=== PATIENT | female | born 1995 | race Caucasian/White ===

== ENCOUNTER 2019-02-18 13:33 | Outpatient (CLI) | payer OTHER ==
--- NOTE | 2019-02-18 14:25 | ULT ---
ULTRASOUND OB COMPLETE STANDARD: History: Anatomy scan. Supervision of high-risk in third trimester. Comparison: None. Findings: Real-time grayscale, color, and spectral analysis of the gravid uterus was performed. Single viable intrauterine with average ultrasound age 28 week 2 day with estimated date of delivery May 11, 2019. Estimated weight is 2 lbs. 9 oz., 2nd percentile. Biometry: Biparietal diameter: 7.09 cm, 28 week 4 day Head circumference: 25.73 cm, 28 week 0 day Abdominal circumference: 23.45 cm, 27 weeks 6 day Femur length: 5.31 cm, 28 week 2 day heart rate documented at 134 bpm. The placenta is posterior and the presentation is vertex. Amniotic fluid is adequate. Anatomy: The head, cerebellum, cisterna magna, 4-chamber heart, stomach, kidneys, cord insertion, polly dder, spine, lips/nose, upper extremities, lower extremities, and 3-vessel cord are all normal. Impression: 1. Single viable intrauterine with average ultrasound age 28 week 2 day with estimated date of delivery May 11, 2019. 2. Estimated weight based on last menstrual period is low at the 2nd percentile. Transcribed Date/Time: 02/18/2019 3:01 PM
== END 2019-02-18 13:34 | disposition home or self-care (01) ==
LOC: BICULT 13:33
PROVIDERS: ATTEND Family Medicine
DX: O09.93 Supervision of high risk pregnancy, unspecified, third trimester (principal); Z3A.28 28 weeks gestation of pregnancy
CPT/HCPCS: 76805

== ENCOUNTER 2019-04-08 18:57 | Day surgery (SDC) | payer OTHER ==
[2019-04-08] MEDS ORDERED: hydrALAZINE 20 MG/ML VIAL SLOW IVP PRN (19:21)
[2019-04-08 19:28] VITALS: BMI 24.3
--- NOTE | 2019-04-08 20:01 | PDOC.FPROB ---
FMR OB H&P: HPI - History of Present Illness Chief Complaint: Lower back/abdominal pain Indentification: 23 year old at 36 wks History of Present Illness: 23 year old at 36 wks presents with lower abdominal pain/back pain since this morning. Patient states the pain is constant but waxes and wanes in intensity every couple of minutes. Patient denies any changes in vaginal discharge, any vaginal bleeding, LoF. She endorses good movement. She had sono done yesterday which showed fetus to be cephalic. She has growth sono scheduled for Thursday. Patient previously seeing [facility] in [place] for poor maternal weight gain. She has gain nearly 30 pounds since that time. Patient states that she drank only two bottles of water today which is more than she drinks normally. 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: Denies history of STD's - Surgical History Sx History: LTCS x1 - Social History Social History: Denies alcohol, tobacco, or drug use FMR OB H&P: Medications - Current Home Medications: Medication Instructions Recorded Confirmed Type clonazePAM [Klonopin] 1 tab PO PRN PRN 04/08/19 04/08/19 History Allergies/Adverse Reactions: Allergies Allergy/AdvReac Type Severity Reaction Status Date / Time No Known Allergies Allergy Verified 04/08/19 19:21 FMR OB H&P: ROS - Review of Systems General: denies: fever/chills, fatigue Eyes: denies: double vision, scotomas ENT: denies: nasal congestion, rhinorrhea, sore throat Cardiovascular: denies: chest pain, palpitation, edema Respiratory: denies: cough, congestion, shortness of breath Gastrointestinal: reports: abdominal pain. denies: nausea, vomiting, diarrhea, constipation Genitourinary (Female): reports: contractions. denies: dysuria, vaginal discharge, vaginal bleeding Musculoskeletal: denies: pain, stiffness Neurologic: denies: numbness, syncope Integumentary: denies: itching, rash Hematologic/Lymphatic: denies: prolonged or excessive bleeding Psychological: reports: depression, anxiety FMR OB H&P: Vital Signs - Maternal Vital signs: BP 126/70 Pulse 105 Afebrile - Heart Tones Baseline: 125 Variability: moderate Acceleration: present Deceleration: absent [place] contractions every: Occasional, uterine irritability FMR OB H&P: Physical Exam - Physical Exam General: NAD, awake, alert and oriented HEENT: MMM, grossly normal vision, grossly normal hearing Heart: RRR, pulses present General: no respiratory distress, no wheezing Abdomen: soft, gravid, non-tender Musculoskeletal: pulses present, FROM in all four extremities Neurological: no tremor, no focal deficit Skin: no rash, capillary refill <2 seconds Lymphatic: no unusual bruising or bleeding, no purpura Psychiatric: intact recent and remote memory - Pelvic Exam SVE: 2, posterior, soft Presentation: Cephalic FMR OB H&P: A/P - Problem List (1) Current Visit: Yes Status: Acute Qualifiers: Weeks of gestation: 36 weeks Qualified Code(s): Z3A.36 - 36 weeks gestation of (2) Anxiety Current Visit: Yes Status: Acute Code(s): F41.9 - ANXIETY DISORDER, UNSPECIFIED Disposition: 23 year old at 36 wks sIUP, - Uterine irritability, improved with PO hydration - Reactive strip - SVE 2, posterior, soft - Does not appear to be in PTL - PO hydration, encouraged continued PO hydration Dispo: D/c home with return precautions. Discussion: Date/Time: 04/08/191955 This H&P was discussed with Dr. Echevarria who agrees with the above documentation and plan. Signature: Torri Lara, PGY-3 Addendum - Attending - Attending Attestation Date/Time: 04/08/192147 I personally evaluated the patient and discussed the management with Dr. Lara. I agree with the History, Examination, Assessment and Plan documented above.
== END 2019-04-08 20:48 | disposition home or self-care (01) ==
LOC: L&D/OP 18:57
PROVIDERS: ATTEND Family Medicine
DX: O99.89 Other specified diseases and conditions complicating pregnancy, childbirth and the puerperium (principal); R10.30 Lower abdominal pain, unspecified; M54.5 Low back pain; O99.343 Other mental disorders complicating pregnancy, third trimester; F41.9 Anxiety disorder, unspecified; O34.211 Maternal care for low transverse scar from previous cesarean delivery; Z3A.36 36 weeks gestation of pregnancy
CPT/HCPCS: 99282

== ENCOUNTER 2019-04-11 08:27 | Outpatient (CLI) | payer OTHER ==
--- NOTE | 2019-04-11 09:50 | ULT ---
EXAM: US OB Complete STANDARD PROVIDED CLINICAL HISTORY: Growth COMPARISON: 02/18/2019 FINDINGS: Single live intrauterine gestation is demonstrated in cephalic presentation with heart rate of 129 bp m. Placenta is fundally located without evidence for previa. Amniotic fluid index is 9.1. Estimated gestational age based on the current examination is 33 weeks 1 day, discrepant with the gestational a ge by dates and based on prior ultrasound. Cervical length appears adequate. Color Doppler and spectral analysis of the umbilical arterial waveform demonstrates a normal systolic to diastolic rati o varying between 2.3 and 3.0. BPD 7.62 cm 30 weeks 4 days Head circumference 30.38 cm 33 weeks 6 days Abdominal circumference 29.91 cm 34 weeks 0 days Femur length 6.54 cm 33 weeks 5 days Estimated weight 2209 +/- 323 g. IMPRESSION: Discrepancy between dates on the current exam as compared with dates calculated on prior exam and via LMP, suggesting growth restriction versus incorrect dates.
== END 2019-04-11 08:28 | disposition home or self-care (01) ==
LOC: BICULT 08:27
PROVIDERS: ATTEND Family Medicine
DX: O09.893 Supervision of other high risk pregnancies, third trimester (principal); Z3A.33 33 weeks gestation of pregnancy
CPT/HCPCS: 76805; 93975

== ENCOUNTER 2019-04-13 23:29 | Inpatient (IN) | payer OTHER ==
[2019-04-13] MEDS ORDERED: hydrALAZINE 20 MG/ML VIAL SLOW IVP PRN (23:54)
[2019-04-13] MEDS ORDERED: Promethazine HCl 25 MG/ML VIAL IM PRN (23:54)
[2019-04-13] MEDS ORDERED: Bicitra 30 ML UDCUP PO SCH (23:54)
[2019-04-13] MEDS ORDERED: Ondansetron PF 4 MG/2 ML Vial IVP PRN (23:54)
[2019-04-13] MEDS ORDERED: CEFAZOLIN 2 GM in Premix Bag 1 BAG IVPB SCH (23:54)
[2019-04-14 00:40] VITALS: BMI 24.7
[2019-04-14] MEDS: Lactated Ringer's 1,000 ML IV SCH ×2 (00:45→07:14)
[2019-04-14 00:58] LABS: Hemoglobin 12.2 g/dL (12.0-16.0); Mean Corpuscular HGB CONC 35.4 g/dL (32.0-36.0); Mean Corpuscular Hemoglobin 35.6 pg (27.0-31.0); Mean Platelet Volume 7.8 fL (7.4-10.4); Platelet Count 211 thou/uL (130-400); RBC Distribution Width 11.4 % (11.5-14.5); Red Blood Cell (RBC) Count 3.42 mill/uL (4.20-5.40); White Blood Cell (WBC) Count 15.7 thou/uL (4.8-10.8)
[2019-04-14 01:34] LABS: HBSAg Index 0.27 S/CO (0-0.99); Hep B Surf Ag Non-Reactive S/CO (NonReactive)
[2019-04-14 06:41] LABS: Syphilis Antibody Nonreactive (Nonreactive); Syphilis Antibody Index 0.03 S/CO (<1.00 Non-Reactive)
[2019-04-14] MEDS ORDERED: Fentanyl 100 MCG/2 ML VIAL ONE (06:49)
[2019-04-14] MEDS ORDERED: Ondansetron PF 4 MG/2 ML Vial ONE (06:50)
[2019-04-14] MEDS ORDERED: Oxytocin 10 UNITS/ML VIAL ONE (06:50)
[2019-04-14] MEDS ORDERED: MORPHINE 5 MG/10 ML PF VIAL ONE (06:50)
[2019-04-14] MEDS ORDERED: PHENYLEPHRINE-NS 100 MCG/ML 10 ML SYRINGE ONE (06:50)
[2019-04-14] MEDS ORDERED: EPHEDRINE 25 MG/5 ML SYRINGE ONE (07:53)
[2019-04-14] MEDS ORDERED: diphenhydrAMINE 50 MG/ML VIAL IVP PRN (08:20)
[2019-04-14] MEDS ORDERED: Ondansetron HCl/PF 4 MG/2 ML Vial IVP PRN (08:20)
[2019-04-14] MEDS ORDERED: Ondansetron PF 4 MG/2 ML Vial IVP PRN ×2 (08:20→11:39)
[2019-04-14] MEDS ORDERED: Promethazine HCl 25 MG SUPP PR PRN (08:20)
[2019-04-14] MEDS ORDERED: Naloxone HCl 0.4 mg/ml Vial IV PRN (08:20)
[2019-04-14] MEDS ORDERED: Naloxone HCl 0.4 mg/ml Vial IVP PRN ×2 (08:20)
[2019-04-14] MEDS ORDERED: Promethazine HCl 25 MG/ML VIAL IM PRN (08:20)
[2019-04-14] MEDS ORDERED: Ketorolac Tromethamine 30 MG/ML VIAL IVP PRN (08:20)
[2019-04-14] MEDS ORDERED: Communication Order-Pharmacy FS SCH (08:30)
[2019-04-14] MEDS ORDERED: NS / Oxytocin 40 units/1000ml 1,000 ML ONE (09:19)
[2019-04-14] MEDS: Acetaminophen 650 MG Suppository PR SCH ×2 (10:20→16:54)
[2019-04-14] MEDS ORDERED: Ketorolac Tromethamine 30 MG/ML VIAL ONE (10:26)
[2019-04-14] MEDS ORDERED: Fentanyl 100 MCG/2 ML VIAL SLOW IVP SCH (11:24)
[2019-04-14] MEDS ORDERED: Bisacodyl 10 MG SUPP PR PRN (11:39)
[2019-04-14] MEDS ORDERED: Simethicone Chewable 80 MG TAB PO PRN (11:39)
[2019-04-14] MEDS ORDERED: diphenhydrAMINE 25 MG CAP PO PRN (11:39)
[2019-04-14] MEDS ORDERED: Lanolin Ointment 7 GM TUBE TOP PRN (11:39)
[2019-04-14] MEDS ORDERED: hydrALAZINE 20 MG/ML VIAL SLOW IVP PRN (11:39)
--- NOTE | 2019-04-14 14:09 | PDOC.OPDEL ---
OB Operative/Delivery Note Delivery Dr/Surgeon: Erick Porter Procedure/Post Delivery Dx: repeat low transverse CS Anesthesia: spinal - Additional Findings/Plan Estimated blood loss: 400 Compilations/Other Findings: Procedure Note Date of Procedure: 04/14/19 Resident Surgeon: Erick [employer] Manager Surgeon: Attending Surgeon: German Procedure: Repeat low transverse caesarean section Preoperative Diagnosis: 1)Term intrauterine at 38 wks 2)Previous x1 3) suspected IUGR by ultrasound criteria Postoperative Diagnosis: 1)same as above s/p rLTCS x2 Anesthesia: spinal Indications: The patient is a 23year old female at 38.0 weeks gestation who presents for a repeat scheduled Procedure in Detail: After risks, benefits, and alternatives were explained to the patient, she gave informed consent. Pre-operative antibiotics included Cefazolin 2 gram IV. The patient was taken to the operating room and spinal anesthesia was initiated. She was placed in the supine position with a left tilt and prepped and draped in usual sterile fashion. A Pfannenstiel incision was made with a scalpel and carried down to the level of the fascia which was sharply nicked. The fascial cut was extended bilaterally with Franco scissors. The inferior and superior edges of the cut fascial edges were elevated with Lam clamps and the underlying rectus muscles were sharply and bluntly dissected free. The recti were divided digitally and retracted manually. The peritoneum was entered bluntly and retracted manually. Bladder blade was placed. A low transverse score was made with the scalpel and the uterus was entered in the midline with the scalpel. Clear fluid was seen. The hysterotomy was extended manually. The was noted to be vertex and was easily delivered by fundal pressure. Mouth and nares were bulb suctioned. Cord clamped and cut and grossly normal female was handed to waiting nurse. Cord blood was obtained. Placenta was manually extracted, found to be intact with 3 vessel cord and discarded. The uterus was externalized and the endometrium was curetted with a dry lap. The bladder blade was replaced and the uterus was closed with a running locking 0-Monocryl. Following this hemostasis was noted. The abdomen was irrigated with saline and suctioned free of clots. The uterus was internalized and the hysterotomy was again noted to be hemostatic. The peritoneum was closed with 3-0 vicryl suture. The fascia was closed with a running non-locking PDS suture. The subcutaneous tissue was irrigated and there were no bleeders. It was then approximated with 3 interrupted chromic sutures. The skin was approximated with rohini and a pressure dressing was placed. All counts were correct. The patient tolerated the procedure well and was taken to the recovery room in stable condition. Estimated Blood Loss: 400 ml Complications: None Specimens: Cord blood sent to lab for blood type Findings: Grossly normal female with Apgars of 7 and 9. Grossly normal placenta with 3 vessel cord discarded. Drains: Becerra to gravity draining clear urine Continue to for routine care Post delivery plan: routine recovery
[2019-04-14] MEDS: Ketorolac Tromethamine 30 MG/ML VIAL IVP SCH ×2 (16:52→22:14)
[2019-04-14] MEDS ORDERED: HYDROcodone/Acetaminophen 5/325 mg Tablet PO PRN (20:31)
[2019-04-14] MEDS ORDERED: Meperidine HCl/PF 25 MG/ML VIAL IM PRN (20:31)
[2019-04-14] MEDS ORDERED: FLU VACC QS2019-20(6MOS UP)/PF 60 MCG/0.5 ML SYRINGE IM ONE (21:00)
[2019-04-14] MEDS: Docusate Calcium (SURFAK) 240 MG CAP PO SCH (22:20)
[2019-04-14] MEDS: Ferrous Sulfate 325 MG TAB PO SCH (22:20)
[2019-04-15] MEDS: Acetaminophen 650 MG Suppository PR SCH (01:31)
[2019-04-15] MEDS: HYDROcodone/Acetaminophen 5/325 mg Tablet PO PRN ×5 (02:56→21:04)
[2019-04-15] MEDS: Ketorolac Tromethamine 30 MG/ML VIAL IVP SCH (04:14)
[2019-04-15 06:01] LABS: Hemoglobin 11.4 g/dL (12.0-16.0); Mean Corpuscular HGB CONC 35.2 g/dL (32.0-36.0); Mean Corpuscular Hemoglobin 35.7 pg (27.0-31.0); Mean Platelet Volume 7.4 fL (7.4-10.4); Platelet Count 169 thou/uL (130-400); RBC Distribution Width 11.4 % (11.5-14.5); White Blood Cell (WBC) Count 11.1 thou/uL (4.8-10.8)
[2019-04-15] MEDS: Prenatal Vitamin 1 TAB PO SCH (07:53)
[2019-04-15] MEDS: Docusate Calcium (SURFAK) 240 MG CAP PO SCH ×3 (07:53→21:04)
[2019-04-15] MEDS ORDERED: Adacel (T-DAP) 0.5 ML SYRINGE IM ONE (09:00)
[2019-04-15] MEDS: Ibuprofen 800 MG TAB PO SCH ×2 (13:51→21:05)
[2019-04-15] MEDS: Ferrous Sulfate 325 MG TAB PO SCH (18:35)
[2019-04-16] MEDS: Ferrous Sulfate 325 MG TAB PO SCH ×2 (01:54→09:32)
[2019-04-16] MEDS: HYDROcodone/Acetaminophen 5/325 mg Tablet PO PRN ×3 (06:15→13:49)
[2019-04-16] MEDS: Ibuprofen 800 MG TAB PO SCH ×2 (06:15→13:48)
[2019-04-16] MEDS: Prenatal Vitamin 1 TAB PO SCH (09:32)
[2019-04-16] MEDS: Docusate Calcium (SURFAK) 240 MG CAP PO SCH (09:32)
[2019-04-16 11:40] VITALS: BP 105/61; TEMP 97.9
== END 2019-04-16 16:55 | disposition home or self-care (01) | DRG 788 ==
LOC: L&D 23:29 → 3SW 04-14 11:59
PROVIDERS: ADMIT Family Medicine; ATTEND Family Medicine
PROC: 10D00Z1 Extraction of Products of Conception, Low, Open Approach (ICD-10-PCS; principal; 2019-04-14)
DX: O34.211 Maternal care for low transverse scar from previous cesarean delivery (principal); O99.344 Other mental disorders complicating childbirth; Z3A.38 38 weeks gestation of pregnancy; Z37.0 Single live birth; F31.9 Bipolar disorder, unspecified; O36.5930 Maternal care for other known or suspected poor fetal growth, third trimester, not applicable or unspecified
CPT/HCPCS: 36415; 51702; 85027; 86780; 86850; 86900; 86901; 87340; 88307; 99285; J0690; J1885; J2274; J2405; J2590; J3010